=== PATIENT | male | born 1975 | race Caucasian/White ===

== ENCOUNTER 2017-06-30 20:58 | Emergency (ER) | payer BC ==
[2017-06-30] MEDS ORDERED: Mag-Al Plus 1200 MG/1200 MG/120 MG/30 ML UDCUP ONE (21:45)
[2017-06-30] MEDS ORDERED: diphenhydrAMINE 12.5 MG/5 ML UDCUP ONE (21:45)
[2017-06-30] MEDS ORDERED: Lidocaine Viscous Sol 2% 15 ml UD Cup ONE (21:45)
== END 2017-06-30 22:00 | disposition home or self-care (01) ==
LOC: MADERS 20:58
DX: K21.9 Gastro-esophageal reflux disease without esophagitis (principal); T43.225A Adverse effect of selective serotonin reuptake inhibitors, initial encounter; F41.9 Anxiety disorder, unspecified
CPT/HCPCS: 99283